=== PATIENT | male | born 2000 | race Caucasian/White ===

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

== ENCOUNTER 2019-12-24 17:08 | Emergency (ER) | payer SELFPAY ==
[2019-12-24] MEDS ORDERED: Ketorolac 30 MG/ML SDV IVPUSH ONE (18:25)
[2019-12-24] MEDS ORDERED: Morphine 2 MG/ML SYRINGE IVPUSH ONE (18:25)
[2019-12-24] MEDS ORDERED: Ondansetron 4 MG/2 ML SDV IVPUSH ONE (18:25)
--- NOTE | 2019-12-24 18:33 | EDM.PDOC ---
ED HPI GENERAL MEDICAL PROBLEM - General Chief Complaint: Lower Extremity Injury/Pain Stated Complaint: LT ANKLE INJURY Time Seen by Provider: 12/24/19 17:14 Source of Information: Reports: Patient History Limitations: Reports: No Limitations - History of Present Illness INITIAL COMMENTS - FREE TEXT/NARRATIVE: HISTORY AND PHYSICAL: History of present illness: Patient is a 19-year-old male who presents to the ED today with concern of left ankle injury that occurred just prior to arrival to the ED. [place] [employer] [place] "funny "off the side of 1 of the trampolines. Patient states he felt a "pop" and since then has not been able to bear weight. Patient states he has not taken anything for his pain. Patient denies any head injury or loss of consciousness. Patient denies any other symptoms or concerns. Patient denies fever, chills, chest pain, shortness of breath, or cough. Denies headache, neck stiff ness, change in vision, syncope, or near syncope. Denies nausea, vomiting, abdominal pain, diarrhea, constipation, or dysuria. Has not noted any blood in urine or stool. Patient has been eating and drinking appropriately. Review of systems: As per history of present illness and below otherwise all systems reviewed and negative. Past medical history: As per history of present illness and as reviewed below otherwise non contributory. Surgical history: As per history of present illness and as reviewed below otherwise noncontributory. Social history: See social history for further information Family history: As per history of present illness and as reviewed below otherwise noncontributory. Physical exam: General: Patient is alert, oriented, and in no acute distress. Patient laying comfortably on exam table. HEENT: Atraumatic, normocephalic, pupils equal and reactive bilaterally, negative for conjunctival pallor or scleral icterus, mucous membranes moist, TMs normal bilaterally, throat clear, neck supple, nontender, trachea midline. No drooling or trismus noted. No meningeal signs. No hot potato voice noted. Lungs: Clear to auscultation, breath sounds equal bilaterally, chest nontender. Heart: S1S2, regular rate and rhythm without overt murmur Abdomen: Soft, nondistended, nontender. Negative for masses or hepatosplenomegaly. Negative for costovertebral tenderness. Pelvis: Stable nontender. Genitourinary: Deferred. Rectal: Deferred. Skin: Intact, warm, dry. No lesions or rashes noted. Extremities: The left ankle has obvious deformity, without breaking in the skin, at the medial and lateral malleolus with severe pain with palpation of this area. Dorsalis pedis and posterior tibial pulses grossly intact of the left lower extremity with capillary refill less than 2 seconds. Otherwise, atrau matic, negative for cords or calf pain. Neurovascular unremarkable. Neuro: Awake, alert, oriented. Cranial nerves II through XII unremarkable. Cerebellum unremarkable. Motor and sensory unremarkable throughout. Exam nonfocal. Notes: I did call and personally speak to Dr. Watson, orthopedic provider on-call at [facility] who states for patient to call and get an appointment with in a week at his clinic. Discussed the importance for follow up with Dr. Velez, orthopedic provider. Voices understanding and is agreeable to plan of care. Denies any further questions or concerns at this time. Diagnostics: Ankle x-ray Therapeutics: Toradol, morphine, Zofran, splint placed by nursing staff, crutches Prescription: [place] 7.5/325 (# 20), Diclofenac Impression: Bimalleolar ankle fracture, left Plan: 1. Rest, ice, elevate the affected extremity over the splint. Do not place You can apply ice 15 minutes on, 15 minutes off. Do not bear any weight on your foot and keep your foot elevated as much as possible. 2. Tylenol as directed for pain management or discomfort. Take medication as prescribed. Caution with [place] as this can make you tired and drowsy. You can also use diclofenac as directed for pain and discomfort. Do not use this medication alongside any other NSAIDs such as ibuprofen or aspirin. 3. Follow up with the Orthopedic provider, Dr. Velez as discussed. The phone number has been provided above for you to call and establish an appointment time. return to the ED as needed and as discussed. Definitive disposition and diagnosis as appropriate pending reevaluation and review of above. Left Ankle Pain Score (Numeric/FACES): 6 - Related Data Allergies Allergy/AdvReac Type Severity Reaction Status Date / Time No Known Allergies Allergy Verified 12/24/19 17:57 Home Meds: Home Meds . [No Known Home Meds] 04/08/14 [History] Past Medical History Cardiovascular History: Reports: None Respiratory History: Reports: Asthma Gastrointestinal History: Reports: None Genitourinary History: Reports: None Musculoskeletal History: Reports: None Neurological History: Reports: None Psychiatric History: Reports: None Endocrine/Metabolic History: Reports: None Hematologic History: Reports: None Immunologic History: Reports: None Oncologic (Cancer) History: Reports: None Dermatologic History: Reports: None - Infectious Disease History Infectious Disease History: Reports: None - Past Surgical History Head Surgeries/Procedures: Reports: None HEENT Surgical History: Reports: Tonsillectomy Social & Family History - Family History Family Medical History: Noncontributory - Tobacco Use Smoking Status *Q: Current Every Day Smoker Years of Tobacco use: 4 Packs/Tins Daily: 0 - Recreational Drug Use Recreational Drug Use: No Review of Systems - Review of Systems Review Of Systems: Comprehensive ROS is negative, except as noted in HPI. ED EXAM, GENERAL - Physical Exam Exam: See Below (see dictation) Course - Vital Signs Last Recorded V/S: Last Vital Signs Temp 95.6 F L 12/24/19 17:10 Pulse 98 12/24/19 17:10 Resp 16 12/24/19 17:10 BP 118/82 12/24/19 17:10 Pulse Ox 99 12/24/19 17:10 - Orders/Labs/Meds Orders: Active Orders 24 hr Category Date Time Status Ankle Min 3V Lt [CR] Stat Exams 12/24/19 18:42 Ordered DME for Discharge [COMM] Stat Oth 12/24/19 18:42 Ordered Meds: Medications Discontinued Medications Generic Name Dose Route Start Last Admin Trade Name Carlos Aq PRN Reason Stop Dose Admin Ketorolac Tromethamine 30 mg 12/24/19 18:25 12/24/19 18:49 Toradol IVPUSH 12/24/19 18:26 30 mg ONETIME ONE Administration Morphine Sulfate 2 mg 12/24/19 18:25 12/24/19 18:49 Morphine IVPUSH 12/24/19 18:26 2 mg ONETIME ONE Administration Ondansetron HCl 4 mg 12/24/19 18:25 12/24/19 18:49 Zofran IVPUSH 12/24/19 18:26 4 mg ONETIME ONE Administration Departure - Departure Time of Disposition: 19:03 Disposition: Home, Self-Care 01 Clinical Impression: Bimalleolar fracture of left ankle Qualifiers: Encounter type: initial encounter Fracture type: closed Qualified Code(s): S82.842A - Displaced bimalleolar fracture of left lower leg, initial encounter for closed fracture - Discharge Information Referrals: Denver Campos MD [Primary Care Provider] - Forms: ED Department Discharge Additional Instructions: The following information is given to patients seen in the emergency department who are being discharged to home. This information is to outline your options for follow-up care. We provide all patients seen in our emergency department with a follow-up referral. The need for follow-up, as well as the timing and circumstances, are variable depending upon the specifics of your emergency department visit. If you don't have a primary care physician on staff, we will provide you with a referral. We always advise you to contact your personal physician following an emergency department visit to inform them of the circumstance of the visit and for follow-up with them and/or the need for any referrals to a consulting specialist. The emergency department will also refer you to a specialist when appropriate. This referral assures that you have the opportunity for follow-up care with a specialist. All of these measure are taken in an effort to provide you with optimal care, which includes your follow-up. Under all circumstances we always encourage you to contact your private physician who remains a resource for coordinating your care. When calling for follow-up care, please make the office aware that this follow-up is from your recent emergency room visit. If for any reason you are refused follow-up, please contact the [facility] Emergency Department at and asked to speak to the emergency department charge nurse. [facility] [address] [place] [address] [address] Orthopedic Surgery, Joey Velez MD [address] [place] [address] [address] 1. Rest, ice, elevate the affected extremity over the splint. Do not place You can apply ice 15 minutes on, 15 minutes off. Do not bear any weight on your foot and keep your foot elevated as much as possible. 2. Tylenol as directed for pain management or discomfort. Take medication as prescribed. Caution with [place] as this can make you tired and drowsy. You can also use diclofenac as directed for pain and discomfort. Do not use this medication alongside any other NSAIDs such as ibuprofen or aspirin. 3. Follow up with the Orthopedic provider, Dr. Velez as discussed. The phone number has been provided above for you to call and establish an appointment time. return to the ED as needed and as discussed. Sepsis Event Note (ED) - Evaluation Sepsis Screening Result: No Definite Risk - Focused Exam Vital Signs: Vital Signs Temp Pulse Resp BP Pulse Ox 12/24/19 17:10 95.6 F L 98 16 118/82 99 - My Orders Last 24 Hours: My Active Orders 12/24/19 18:42 Ankle Min 3V Lt [CR] Stat DME for Discharge [COMM] Stat - Assessment/Plan Last 24 Hours: My Active Orders 12/24/19 18:42 Ankle Min 3V Lt [CR] Stat DME for Discharge [COMM] Stat
--- NOTE | 2019-12-24 18:34 | CR ---
Left ankle: 3 views left ankle were obtained. Comparison: No prior ankle study. Fractures are identified within the distal fibula through the lateral malleolus as well as medial malleolus. Mild displacement is seen of the fracture fragments. Soft tissue swelling is noted. No additional bony abnormality is appreciated. Impression: 1. Mildly displaced bimalleolar fractures with soft tissue swelling. Diagnostic code #5 This report was dictated in MDT
[2019-12-24 23:54] VITALS: BP 143/76; PULSE 66
--- NOTE | 2019-12-25 15:09 | CR ---
Left ankle: 3 views left ankle were obtained. Comparison: Prior left ankle study performed earlier on the same day (6:10 PM). Bimalleolar fractures are again noted. Fiberglas splint is noted. Soft tissue swelling is noted. Impression: 1. Findings as noted above. Diagnostic code #2 This report was dictated in MDT
== END 2019-12-24 20:10 | disposition home or self-care (01) ==
LOC: MW.ED 17:08
DX: S82.842A Displaced bimalleolar fracture of left lower leg, initial encounter for closed fracture (principal); J45.909 Unspecified asthma, uncomplicated; W09.8XXA Fall on or from other playground equipment, initial encounter; Y93.44 Activity, trampolining
CPT/HCPCS: 29515; 73610; 96374; 96375; 99283; J1885; J2270; J2405

== ENCOUNTER 2023-06-07 14:09 | Emergency (ER) | payer BC ==
[2023-06-07] MEDS ORDERED: oxyCODONE 5 MG Tab PO STA (15:23)
[2023-06-07 15:42] VITALS: PULSE 61
[2023-06-07 16:19] VITALS: BP 153/84
== END 2023-06-07 16:19 | disposition home or self-care (01) ==
LOC: MW.ED 14:09
DX: S82.839A Other fracture of upper and lower end of unspecified fibula, initial encounter for closed fracture (principal); J45.909 Unspecified asthma, uncomplicated; F17.210 Nicotine dependence, cigarettes, uncomplicated
CPT/HCPCS: 29515; 73610; 99283; A9270